=== PATIENT | female | born 1975 | race Caucasian/White ===

== ENCOUNTER 2021-06-29 04:44 | Emergency (ER) | payer OTHER ==
[~2021-06-29] VITALS: Ht 170.2 cm; Wt 84.1 kg
[2021-06-29] MEDS ORDERED: amoxicillin 250mg capsule PO ONE (05:15)
--- NOTE | 2021-06-29 05:15 | NUR ---
PATIENT IN THE ER WITH COMPLAINTS OF LEFT EAR PAIN , DESCRIBE PRESSURE ACHY , PAINFUL TO THE TOUCH, STATES THAT HE CANT HEAR OF IT, DENIES DISCHARGE STATES HE DOES FEEL SOME VERTIGO, ORAL CEPLAXIN , FLONASE DECONGESTANT.
[2021-06-29] MEDS ORDERED: AMOX875T2 PO (05:19)
[2021-06-29 05:22] VITALS: BP 163/94
== END 2021-06-29 05:36 | disposition home or self-care (01) ==
LOC: ER 04:45
DX: H66.92 Otitis media, unspecified, left ear (principal); Z79.2 Long term (current) use of antibiotics
CPT/HCPCS: 99283